=== PATIENT | male | born 1990 | race Hispanic/Latino ===

== ENCOUNTER 2019-06-26 13:10 | Emergency (ER) | payer BC, SELFPAY | END 2019-06-26 14:50 | disposition home or self-care (01) | LOC: ERS 13:10 | DX: B36.0 Pityriasis versicolor (principal) | CPT/HCPCS: 99282 ==

== ENCOUNTER 2022-09-09 19:41 | Emergency (ER) | payer SELFPAY ==
[2022-09-09] MEDS ORDERED: Ketorolac Tromethamine 30 MG/ML VIAL ONE ×2 (20:09→20:19)
[2022-09-09] MEDS ORDERED: Dexamethasone 10 MG/ML VIAL ONE (20:09)
[2022-09-09] MEDS ORDERED: cefTRIAXone\\ROCEPHIN 1 GM VIAL ONE (20:09)
[2022-09-09] MEDS ORDERED: Lidocaine 1% PF 5 ML VIAL ONE (20:11)
== END 2022-09-09 21:10 | disposition home or self-care (01) ==
LOC: ERS 19:41
DX: J36 Peritonsillar abscess (principal); F17.210 Nicotine dependence, cigarettes, uncomplicated
CPT/HCPCS: 87081; 87430; 96372; 99283; J0696; J1100; J1885

== ENCOUNTER 2022-10-14 17:03 | Emergency (ER) | payer SELFPAY ==
[2022-10-14 17:33] LABS: Hemoglobin 10.9 g/dL (14.0-18.0); Mean Corpuscular Hemoglobin 27.9 pg (27.0-31.0); Mean Corpuscular Volume 84.5 fl (78.0-98.0); Mean Platelet Volume 9.3 fL (7.4-10.4); Platelet Count 210 10x3/uL (130-400); RBC Distribution Width 13.4 % (11.5-14.5); Red Blood Cell (RBC) Count 3.91 mill/uL (4.70-6.10); White Blood Cell (WBC) Count 6.8 10x3/uL (4.8-10.8)
[2022-10-14 17:56] LABS: ALT (SGPT) 14 U/L (8-55); AST (SGOT) 47 U/L (5-34); Albumin 3.4 g/dL (3.5-5.0); Alkaline Phosphatase 55 U/L (40-110); Anion Gap 15 mmol/L (10-20); BUN (Urea Nitrogen) 9 mg/dL (8.9-20.6); Bilirubin, Total 0.8 mg/dL (0.2-1.2); Calc. Creatinine Clearance 0 mL/min (70-130); Calcium 8.4 mg/dL (7.8-10.44); Carbon Dioxide 24 mmol/L (22-29); Chloride 92 mmol/L (98-107); Estimated GFR 123; Globulin 4.1 g/dL (2.4-3.5); Glucose 95 mg/dL (70-105); Protein, Total 7.5 g/dL (6.0-8.3); Sodium 127 mmol/L (136-145)
[2022-10-14 18:09] LABS: Band 6 % (5-11); Hypersemented Neutrophil SLIGHT; Lymphocytes 6 % (21-51); MDiff Complete? YES; Monocytes 8 % (0-10); Neutrophil 80 % (42-75); Platelet Morphology Comment Appears Adequate; Polychromasia SLIGHT = 2-3 cells (100X) (0-2/hpf); Vacuoles SLIGHT
[2022-10-14] MEDS ORDERED: Ondansetron PF 4 MG/2 ML Vial ONE (21:34)
[2022-10-14] MEDS ORDERED: Azithromycin 250 MG TAB ONE (21:34)
== END 2022-10-14 22:46 | disposition home or self-care (01) ==
LOC: ERS 17:03
DX: J18.9 Pneumonia, unspecified organism (principal); D64.9 Anemia, unspecified; E87.1 Hypo-osmolality and hyponatremia; F17.210 Nicotine dependence, cigarettes, uncomplicated
CPT/HCPCS: 36415; 71045; 80053; 83605; 85025; 87040; 93005; 96374; J2405

== ENCOUNTER 2023-01-05 08:38 | Inpatient (IN) | payer SELFPAY ==
[2023-01-05 09:27] LABS: Hemoglobin 9.4 g/dL (14.0-18.0); Mean Corpuscular Hemoglobin 27.7 pg (27.0-31.0); Mean Corpuscular Volume 83.8 fl (78.0-98.0); Mean Platelet Volume 8.7 fL (7.4-10.4); Platelet Count 211 10x3/uL (130-400); RBC Distribution Width 12.4 % (11.5-14.5); White Blood Cell (WBC) Count 5.1 10x3/uL (4.8-10.8)
[2023-01-05] MEDS ORDERED: cefTRIAXone (ROCEPHIN) 2 GM VIAL ONE (09:29)
[2023-01-05] MEDS ORDERED: Fluconazole In NaCl,Iso-Osm 400 MG in Premix Bag 1 BAG IVPB SCH (09:30)
[2023-01-05 09:44] LABS: ALT (SGPT) 9 U/L (8-55); AST (SGOT) 23 U/L (5-34); Albumin 3.2 g/dL (3.5-5.0); Alkaline Phosphatase 48 U/L (40-110); Anion Gap 16 mmol/L (10-20); BUN (Urea Nitrogen) 10 mg/dL (8.9-20.6); Band 4 % (5-11); Bilirubin, Total 0.6 mg/dL (0.2-1.2); Calc. Creatinine Clearance 0 mL/min (70-130); Calcium 8.4 mg/dL (7.8-10.44); Carbon Dioxide 21 mmol/L (22-29); Chloride 99 mmol/L (98-107); Elliptocytes SLIGHT = 2-5 cells (100X) (0-1/hpf); Estimated GFR 129; Globulin 4.3 g/dL (2.4-3.5); Glucose 81 mg/dL (70-105); Hypochromia SLIGHT = 6-15 cells (100X) (0-5/hpf); Lymphocytes 14 % (21-51); MDiff Complete? YES; Monocytes 10 % (0-10); Neutrophil 72 % (42-75); Platelet Morphology Comment Appears Adequate; Polychromasia SLIGHT = 2-3 cells (100X) (0-2/hpf); Potassium 3.5 mmol/L (3.5-5.1); Protein, Total 7.5 g/dL (6.0-8.3); Sodium 132 mmol/L (136-145)
[2023-01-05 10:08] LABS: Troponin I Less than 0.010 ng/mL (< 0.028)
[2023-01-05 10:23] LABS: SARS-CoV-2 NAA Rapid Test Not Detected (NotDetected)
[2023-01-05] MEDS ORDERED: Azithromycin 500 MG VIAL ONE (10:35)
[2023-01-05] MEDS ORDERED: Ondansetron PF 4 MG/2 ML Vial IVP PRN (10:57)
[2023-01-05] MEDS ORDERED: Acetaminophen 325 MG TAB PO PRN (10:57)
[2023-01-05] MEDS ORDERED: methylPREDNISolone Sod Succ 40 MG VIAL IVP SCH (11:15)
[2023-01-05 12:43] LABS: Ref Lab Test Ordered AFB Smear+Culture; Reference Lab Name LABCORP
[2023-01-05] MEDS ORDERED: predniSONE 20 MG TAB ONE (12:46)
[2023-01-05] MEDS ORDERED: Iopamidol-370 76% 500 ML MDV (1 ML CHARGE) ONE (15:17)
[2023-01-05] MEDS ORDERED: FLU VACC QS2022-23(6MO UP)/PF 60 MCG/0.5 ML SYRINGE IM ONE (15:30)
[2023-01-05 15:57] VITALS: BMI 18.2
[2023-01-05] MEDS: Nystatin 500,000 UNITS/5 ML UDCUP SSW SCH ×3 (16:41→21:09)
[2023-01-05] MEDS: Lactated Ringer's 1,000 ML IV SCH ×2 (16:41→18:02)
[2023-01-05] MEDS ORDERED: WATER IVPB SCH (21:00)
[2023-01-05] MEDS ORDERED: TRIMETHOPRIM IVPB SCH (21:00)
[2023-01-05] MEDS ORDERED: SULFAMETHOXAZOLE IVPB SCH (21:00)
[2023-01-05] MEDS ORDERED: DEXTROSE 5% IVPB SCH (21:00)
[2023-01-05] MEDS: Famotidine/PF 20 mg/2ml Vial SLOW IVP SCH (21:09)
[2023-01-05] MEDS: methylPREDNISolone Sod Succ 40 MG VIAL IVP SCH (21:09)
[2023-01-05] MEDS: Sulfamethoxazole/Trimethoprim 320 MG in Dextrose 5% in Water 500 ML IVPB SCH (21:17)
[2023-01-06] MEDS: Sulfamethoxazole/Trimethoprim 320 MG in Dextrose 5% in Water 500 ML IVPB SCH ×3 (04:30→20:19)
[2023-01-06] MEDS ORDERED: Sodium Chloride 0.9% 500 ML IV SCH (04:45)
[2023-01-06] MEDS: methylPREDNISolone Sod Succ 40 MG VIAL IVP SCH ×2 (08:19→20:20)
[2023-01-06] MEDS: Famotidine/PF 20 mg/2ml Vial SLOW IVP SCH ×2 (08:19→20:20)
[2023-01-06] MEDS: Nystatin 500,000 UNITS/5 ML UDCUP SSW SCH ×4 (08:19→20:19)
[2023-01-06 08:29] LABS: Hemoglobin 8.5 g/dL (14.0-18.0); Mean Corpuscular HGB CONC 32.1 g/dL (32.0-36.0); Mean Corpuscular Hemoglobin 27.2 pg (27.0-31.0); Mean Corpuscular Volume 84.7 fl (78.0-98.0); Mean Platelet Volume 9.1 fL (7.4-10.4); Platelet Count 195 10x3/uL (130-400); RBC Distribution Width 12.5 % (11.5-14.5); Red Blood Cell (RBC) Count 3.12 mill/uL (4.70-6.10)
[2023-01-06] MEDS: cefTRIAXone\\ROCEPHIN 2 GM in Sodium Chloride 0.9% 100 ML IVPB SCH (08:29)
[2023-01-06 08:46] LABS: Anion Gap 13 mmol/L (10-20); BUN (Urea Nitrogen) 8 mg/dL (8.9-20.6); Calc. Creatinine Clearance 122 mL/min (70-130); Carbon Dioxide 18 mmol/L (22-29); Chloride 106 mmol/L (98-107); Estimated GFR 131; Glucose 202 mg/dL (70-105); Potassium 3.6 mmol/L (3.5-5.1); Sodium 133 mmol/L (136-145)
[2023-01-06 08:50] LABS: Band 3 % (5-11); Elliptocytes SLIGHT = 2-5 cells (100X) (0-1/hpf); Lymphocytes 6 % (21-51); MDiff Complete? YES; Monocytes 1 % (0-10); Neutrophil 90 % (42-75)
[2023-01-06] MEDS ORDERED: Fluconazole In NaCl,Iso-Osm 200 MG in Premix Bag 1 BAG IVPB SCH (09:00)
[2023-01-06 09:06] LABS: HBSAB Concentration Less than 8.00 mIU/mL; Hep B Surf Ag Non-Reactive S/CO (NonReactive); Hep C IgG Ab Non-Reactive (NonReactive); Hep C Index 0.09 S/CO (0-0.79)
[2023-01-06 10:17] LABS: Hep B Surf AB Non-Reactive (NonReactive)
[2023-01-06] MEDS: Azithromycin 500 MG in Sodium Chloride 0.9% 250 ML 250 ML IVPB SCH (10:40)
[2023-01-06] MEDS: Fluconazole In NaCl,Iso-Osm 400 MG in Premix Bag 1 BAG IVPB SCH (12:55)
[2023-01-06 14:13] LABS: Syphilis Antibody INDETERMINATE (Nonreactive); Syphilis Antibody Index 14.97 S/CO (<1.00 Non-Reactive)
[2023-01-06 16:14] LABS: %CD4 (Helper/Inducer) 0.9 % (30.8-58.5); Absolute CD4 5 /uL (359-1519); Lymphocytes/Gated Cell Count 0.6 x10E3/uL (0.7-3.1); Total Lymphocyte 13 % (Not Estab.); WBC Total Count 4.2 x10E3/uL (3.4-10.8); nRBC 1 % (0 - 0)
[2023-01-06 16:38] LABS: Reference Lab Name LABCORP
[2023-01-06 16:39] LABS: Ref Lab Test Ordered HHV8 PCR
[2023-01-07] MEDS: Sulfamethoxazole/Trimethoprim 320 MG in Dextrose 5% in Water 500 ML IVPB SCH ×3 (04:07→20:43)
[2023-01-07 05:17] LABS: Anion Gap 10 mmol/L (10-20); BUN (Urea Nitrogen) 8 mg/dL (8.9-20.6); Calc. Creatinine Clearance 115 mL/min (70-130); Calcium 8.1 mg/dL (7.8-10.44); Carbon Dioxide 21 mmol/L (22-29); Chloride 109 mmol/L (98-107); Estimated GFR 128; Glucose 137 mg/dL (70-105); Potassium 3.9 mmol/L (3.5-5.1); Sodium 136 mmol/L (136-145)
[2023-01-07 05:26] LABS: Band 4 % (5-11); Hemoglobin 8.7 g/dL (14.0-18.0); Lymphocytes 11 % (21-51); MDiff Complete? YES; Mean Corpuscular Hemoglobin 27.6 pg (27.0-31.0); Mean Corpuscular Volume 83.8 fl (78.0-98.0); Mean Platelet Volume 8.9 fL (7.4-10.4); Monocytes 2 % (0-10); Neutrophil 83 % (42-75); Platelet Count 234 10x3/uL (130-400); Platelet Morphology Comment Appears Adequate; RBC Distribution Width 12.6 % (11.5-14.5); RBC Morphology Normal; Red Blood Cell (RBC) Count 3.15 mill/uL (4.70-6.10); White Blood Cell (WBC) Count 9.1 10x3/uL (4.8-10.8)
[2023-01-07] MEDS: methylPREDNISolone Sod Succ 40 MG VIAL IVP SCH (09:06)
[2023-01-07] MEDS: Famotidine/PF 20 mg/2ml Vial SLOW IVP SCH ×2 (09:06→20:43)
[2023-01-07] MEDS: cefTRIAXone\\ROCEPHIN 2 GM in Sodium Chloride 0.9% 100 ML IVPB SCH (09:06)
[2023-01-07] MEDS: Nystatin 500,000 UNITS/5 ML UDCUP SSW SCH ×4 (09:06→20:43)
[2023-01-07] MEDS: Azithromycin 500 MG in Sodium Chloride 0.9% 250 ML 250 ML IVPB SCH (10:15)
[2023-01-07] MEDS: Fluconazole In NaCl,Iso-Osm 400 MG in Premix Bag 1 BAG IVPB SCH (12:27)
[2023-01-07] MEDS ORDERED: Midazolam HCl 2 mg/2 ml Vial ONE (12:36)
[2023-01-07] MEDS ORDERED: fentaNYL PF 100 MCG/2 ML SYRINGE ONE (12:36)
[2023-01-07] MEDS ORDERED: SUGAMMADEX SODIUM 200 MG/2 ML VIAL ONE (12:53)
[2023-01-07] MEDS ORDERED: Lidocaine 1% PF 5 ML VIAL ONE (13:10)
[2023-01-07] MEDS ORDERED: Ondansetron PF 4 MG/2 ML Vial ONE (13:10)
[2023-01-07] MEDS ORDERED: Rocuronium Bromide 10 MG/ML (10ML VIAL) ONE (13:10)
[2023-01-07] MEDS ORDERED: PROPOFOL 200 MG/20 ML VIAL ONE (13:10)
[2023-01-07] MEDS ORDERED: Dexamethasone 20 MG/5 ML VIAL ONE (13:10)
[2023-01-07] MEDS ORDERED: Promethazine HCl 25 MG/ML VIAL IM PRN (14:06)
[2023-01-07] MEDS ORDERED: Ondansetron HCl/PF 4 MG/2 ML Vial IVP PRN (14:06)
[2023-01-07 14:55] LABS: BF Color Colorless; Body Fluid Source Bronchioalveol Lavag; Clarity Hazy (Clear)
[2023-01-07 15:04] LABS: BF RBC Count - Manual 191 /cu.mm; BF WBC/Nonhematics Ct.-Manual 320 /cu.mm
[2023-01-07 16:41] LABS: BF Segmented Neutrophils 13 %; Cell Count Non Hematic 64 %; Lymphocytes 23 %
[2023-01-07 22:13] LABS: CMV log 10 Quant 2.55 (.)
[2023-01-08] MEDS: Sulfamethoxazole/Trimethoprim 320 MG in Dextrose 5% in Water 500 ML IVPB SCH ×3 (04:26→21:26)
[2023-01-08 04:38] LABS: Hemoglobin 8.8 g/dL (14.0-18.0); Platelet Count 235 10x3/uL (130-400)
[2023-01-08 04:57] LABS: Anion Gap 13 mmol/L (10-20); BUN (Urea Nitrogen) 10 mg/dL (8.9-20.6); Calc. Creatinine Clearance 112 mL/min (70-130); Carbon Dioxide 19 mmol/L (22-29); Chloride 109 mmol/L (98-107); Estimated GFR 127; Glucose 134 mg/dL (70-105); Potassium 3.8 mmol/L (3.5-5.1); Sodium 137 mmol/L (136-145)
[2023-01-08 09:17] LABS: LOG10 HIV-1 RNA 6.297 (.)
[2023-01-08] MEDS: Nystatin 500,000 UNITS/5 ML UDCUP SSW SCH ×4 (09:43→21:26)
[2023-01-08] MEDS: Famotidine/PF 20 mg/2ml Vial SLOW IVP SCH ×2 (09:44→21:26)
[2023-01-08] MEDS: methylPREDNISolone Sod Succ 40 MG VIAL IVP SCH (09:44)
[2023-01-08] MEDS: cefTRIAXone\\ROCEPHIN 2 GM in Sodium Chloride 0.9% 100 ML IVPB SCH (09:44)
[2023-01-08] MEDS: Azithromycin 500 MG in Sodium Chloride 0.9% 250 ML 250 ML IVPB SCH (09:45)
[2023-01-08] MEDS: Fluconazole In NaCl,Iso-Osm 400 MG in Premix Bag 1 BAG IVPB SCH (15:05)
[2023-01-09] MEDS: Sulfamethoxazole/Trimethoprim 320 MG in Dextrose 5% in Water 500 ML IVPB SCH ×2 (04:27→12:51)
[2023-01-09] MEDS: Nystatin 500,000 UNITS/5 ML UDCUP SSW SCH ×2 (08:44→12:51)
[2023-01-09] MEDS: Famotidine/PF 20 mg/2ml Vial SLOW IVP SCH (08:45)
[2023-01-09] MEDS: methylPREDNISolone Sod Succ 40 MG VIAL IVP SCH (08:45)
[2023-01-09] MEDS ORDERED: Azithromycin 250 MG TAB PO SCH (09:00)
[2023-01-09 11:39] VITALS: BP 84/52; TEMP 99
[2023-01-09] MEDS: Fluconazole In NaCl,Iso-Osm 400 MG in Premix Bag 1 BAG IVPB SCH (13:48)
[2023-01-09] MEDS ORDERED: Fluconazole In NaCl,Iso-Osm 400 MG in Premix Bag 1 BAG IVPB SCH (16:00)
[2023-01-09] MEDS ORDERED: BIKTARVY 50-200-25 MG TABLET PO SCH (21:00)
[2023-01-11 08:16] LABS: QuantiFERON-TB Gold Plus Indeterminate (Negative)
== END 2023-01-09 15:45 | disposition home or self-care (01) | DRG 974 ==
LOC: ERS 08:38 → 2NO 13:44
PROVIDERS: ADMIT Internal Medicine; ATTEND Family Medicine
PROC: 0B9C8ZX Drainage of Right Upper Lung Lobe, Via Natural or Artificial Opening Endoscopic, Diagnostic (ICD-10-PCS; principal; 2023-01-07)
DX: B59 Pneumocystosis (principal); J96.00 Acute respiratory failure, unspecified whether with hypoxia or hypercapnia; B20 Human immunodeficiency virus [HIV] disease; E87.1 Hypo-osmolality and hyponatremia; R64 Cachexia; B37.0 Candidal stomatitis; Z68.1 Body mass index [BMI] 19.9 or less, adult; C46.9 Kaposi's sarcoma, unspecified; D64.9 Anemia, unspecified; Z91.199 Patient's noncompliance with other medical treatment and regimen due to unspecified reason; Z79.899 Other long term (current) drug therapy
CPT/HCPCS: 36415; 71045; 71275; 80048; 80053; 83605; 83615; 84484; 85014; 85018; 85025; 85049; 85060; 86361; 86480; 86593; 86706; 86780; 86803; 87040; 87070; 87102; 87116; 87206; 87340; 87497; 87536; 88112; 88305; 88312; 89051; 93005; 94760; 96365; 96367; J0456; J0696; J1100; J1450; J2250; J2405; J2704; J2920; J3490; J7030; J7050; J7070; J7120; J7512; Q9967; S0028